=== PATIENT | female | born 1990 | race Hispanic/Latino ===

== ENCOUNTER 2019-01-19 12:16 | Emergency (ER) | payer OTHER ==
[~2019-01-19] VITALS: Ht 157.5 cm; Wt 65.9 kg
[2019-01-19] MEDS ORDERED: diphenhydrAMINE INJ 50MG/ML VIAL (J1200) IV STA (12:56)
[2019-01-19] MEDS ORDERED: METOCLOPRAMIDE INJ 10MG/2ML VIAL (J2765) IV ONE (13:00)
[2019-01-19] MEDS ORDERED: NS 1,000 ML IV ONE (13:00)
[2019-01-19] MEDS ORDERED: KETOROLAC 30 MG/ML VIAL (J1885) IV ONE (13:00)
[2019-01-19 14:40] VITALS: BP 101/72
== END 2019-01-19 15:03 | disposition home or self-care (01) ==
LOC: M ED 12:16
DX: G43.909 Migraine, unspecified, not intractable, without status migrainosus (principal); Z87.820 Personal history of traumatic brain injury
CPT/HCPCS: 96374; 96375; 99284; J1200; J1885; J2765

== ENCOUNTER 2019-01-30 14:41 | Emergency (ER) | payer OTHER ==
[~2019-01-30] VITALS: Ht 160 cm; Wt 66.9 kg
[2019-01-30 14:42] VITALS: BP 137/82
[2019-01-30] MEDS ORDERED: LORA-674 (14:49)
[2019-01-30] MEDS ORDERED: ZOLP5TAB (14:49)
[2019-01-30] MEDS ORDERED: METOCLOPRAMIDE 10 MG TAB PO ONE (15:00)
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
[2019-01-30] MEDS ORDERED: NAPR-837 PO (15:34)
[2019-01-30] MEDS ORDERED: ROBA500T PO (15:34)
== END 2019-01-30 15:42 | disposition home or self-care (01) ==
LOC: M ED 14:41
DX: S16.1XXA Strain of muscle, fascia and tendon at neck level, initial encounter (principal); V49.59XA Passenger injured in collision with other motor vehicles in traffic accident, initial encounter; Y92.410 Unspecified street and highway as the place of occurrence of the external cause; Z88.0 Allergy status to penicillin